=== PATIENT | female | born 1980 | race Caucasian/White ===

== ENCOUNTER 2016-12-29 20:22 | Observation (INO) | payer OTHER ==
--- NOTE | ~2016-12-29 | CR72 ---
[facility] A Service of [facility] RADIOLOGY TEXT RESULTS PATIENT: ALEX JERNIGAN LOCATION: [facility] 328 : 80 UNIT #: [id number] AGE: [address]: Lor Cordova MD SEX: F ORDER DR: [id number] [facility] [address], [place] [address] [id number] MR#: [id number] Acc #: [id number] NAME: ALEX JERNIGAN : 1980 SEX: F STUDY DATE/TIME: 12/29/2016 19:34 UNIT: [facility] ROOM: [facility] STUDY DESCRIPTION: CR Chest Single View Portable Attending Physician: Olivia Sloan M.D. Referring Physician: Lor Cordova M.D. Ordering Physician: Israel Boyce M.D. Primary Care Physician: Lor Cordova M.D. MEDICAL IMAGING REPORT This report is preliminary unless electronic signature is present EXAM Portable chest. DATE OF EXAM 12/29/2016 HISTORY Left side chest pain and arm pain and shortness of air for 2 days. Cough. FINDINGS The cardiac size and pulmonary vascularity are normal. Mild right thoracic curve. Mild hyperinflation of both lungs. There is a small left apical pneumothorax measuring close to 5%. Consider short-term followup x-ray. IMPRESSION 1. Small left apical pneumothorax measures less than 5%. 2. No focal infiltrates. 3. Mild right lower thoracic curve. Dictated by... Hiram Guerrero M.D. THIS IS AN ELECTRONICALLY VERIFIED REPORT Hiram Guerrero M.D. at 12/30/2016 10:39 PM JIMMY/nadeen TD: 12/29/2016 23:39 JOB #: [id number] MEDICAL IMAGING REPORT [facility] A Service of [facility] RADIOLOGY TEXT RESULTS PATIENT: ALEX JERNIGAN LOCATION: [facility] 328 : 80 UNIT #: [id number] AGE: [address]: Lor Cordova MD SEX: F ORDER DR: Page 1 of 1 COPY
--- NOTE | ~2016-12-29 | DS ---
Unit #: [id number] #: [id number] Patient: ALEX JERNIGAN [id number] [address] [address] [id number] I MR#: [id number] NAME: ALEX JERNIGAN ROOM: 328 Age: 36 Sex: F Admission Date: 12/29/2016 : 1980 Discharge Date: 12/30/2016 Attending Physician: Lor Cordova M.D. Referring Physician: Lor Cordova M.D. Primary Care Physician: Lor Cordova M.D. DISCHARGE SUMMARY FINAL DIAGNOSES 1. Spontaneous pneumothorax, resolved. 2. Influenza A. SECONDARY DIAGNOSES 1. Hypertension. 2. Chronic low back pain, status post surgery. 3. History of nephrolithiasis. CONSULTANTS None. HOSPITAL COURSE The patient is a pleasant 36-year-old female who is a smoker, basically presents with some chest pain. She was seen and evaluated in the emergency room and was diagnosed with left apical pneumothorax less than 5%. She was treated with high flow oxygen and repeat chest x-ray did indicate a resolution of the pneumothorax. Influenza A. Patient was positive for the flu. She was started on Tamiflu. She will be discharged with 4 days of Tamiflu 75 mg p.o. b.i.d. For her pain, she was given some Isabela. She was evaluated and is stable for discharge and will be discharged in stable condition for outpatient followup with me in the office in 3 to 5 days. DISCHARGE MEDICATIONS 1. Neurontin 800 mg p.o. t.i.d. 2. Claritin 10 mg p.o. daily. 3. Tamiflu 75 mg p.o. q.12 h. 4. Isabela 5/325 one tablet p.o. q.6 h. p.r.n. I have counseled patient on smoking cessation today. Time spent coordinating discharge is about 33 minutes. Dictated by... Unit #: [id number] #: [id number] Patient: ALEX JERNIGAN Brenda Bai/saima TD: 12/30/2016 22:44 JOB #: [id number] DISCHARGE SUMMARY Page 1 of 1 X Lor Cordova MD DISCHARGE SUMMARY
--- NOTE | ~2016-12-29 | CR63 ---
[facility] A Service of [facility] RADIOLOGY TEXT RESULTS PATIENT: ALEX JERNIGAN LOCATION: [facility] 328-01 : [birth year] UNIT #: [id number] AGE: [address]: Lor Cordova MD SEX: F ORDER DR: [id number] [facility] [address] [facility]. [place], [place] [address] [id number] I MR#: [id number] #: [id number] NAME: ALEX JERNIGAN : 1980 SEX: F STUDY DATE/TIME: 12/30/2016 7:29 UNIT: [address] ROOM: [facility] STUDY DESCRIPTION: CR Chest 2 View Attending Physician: Lor Cordova M.D. Referring Physician: Lor Cordova M.D. Ordering Physician: Olivia Sloan M.D. Primary Care Physician: Lor Cordova M.D. MEDICAL IMAGING REPORT This report is preliminary unless electronic signature is present EXAM 2 views chest 12/30/2016. HISTORY Pneumothorax. FINDINGS AP radiograph of the chest is presented. Comparison 12/29/2016. The bony structures are unremarkable. Heart and mediastinum normal in size and contour. The lungs are well inflated bilaterally without evidence of acute pulmonary disease or pleural effusion. Tiny left pneumothorax seen on prior examination not evident on today's study. Dictated by... Tramaine Alvarez M.D. THIS IS AN ELECTRONICALLY VERIFIED REPORT Tramaine Alvarez M.D. at 12/30/2016 4:49 PM Aruna TD: 12/30/2016 09:57 JOB #: [id number] MEDICAL IMAGING REPORT Page 1 of 1 COPY
--- NOTE | ~2016-12-29 | HP ---
Unit #: [id number] #: [id number] Patient: ALEX JERNIGAN [id number] [address] [address] [id number] I MR#: [id number] NAME: ALEX JERNIGAN ROOM: 618[address] Age: 36 Sex: F Admission Date: 12/29/2016 : 1980 Attending Physician: Olivia Sloan M.D. Referring Physician: Lor Cordova M.D. Primary Care Physician: Lor Cordova M.D. HISTORY AND PHYSICAL CHIEF COMPLAINT Small left apical pneumothorax. HISTORY OF PRESENT ILLNESS This pleasant 36-year-old female with seasonal allergies and chronic low back pain is admitted for left chest pain. The patient states that she was well until two days prior to admission when she became hoarse with a minor cough and sneezing. She then began to experience left upper chest pain worse with inspiration radiating to the left arm. She did have nausea, vomiting, and a headache. She presented to this emergency department this evening somewhat hypertensive. Chest x-ray shows a less than 5% pneumothorax of the left lung. She was placed on high-flow oxygen in the emergency department. PAST MEDICAL HISTORY 1. Chronic low back pain, status post back surgery. 2. Kidney stones. 3. Bilateral tubal ligation. 4. Appendectomy. 5. Breast augmentation surgery. ALLERGIES No known drug allergies. HOME MEDICATIONS 1. Ibuprofen. 2. Neurontin 800 mg t.i.d. FAMILY HISTORY Coronary artery disease, hypertension, diabetes mellitus. SOCIAL HISTORY The patient lives with her fiance. She smokes one-half pack per day of tobacco and seldom drinks alcohol. REVIEW OF SYSTEMS Notable for left chest pain, above-mentioned surgeries, kidney stones, seasonal allergies, hoarseness, mild cough, rhinorrhea, and chronic back pain. All other systems were reviewed and are otherwise negative. PHYSICAL EXAMINATION GENERAL: A pleasant, uncomfortable-appearing, 36-year-old, thin female. VITAL SIGNS: Temperature 98.3, pulse 57, respirations 16, initial blood Unit #: [id number] #: [id number] Patient: ALEX JERNIGAN pressure 155/101, current blood pressure is 125/91, and O2 saturation is 99% on a nonrebreather. HEENT: Eyes PERRLA. Extraocular muscles are intact. Pharynx is benign. NECK: Supple without adenopathy or thyromegaly. CHEST: A little bit diminished breath sounds on the left in the upper chest as compared to the right. CARDIAC: Normal S1 and S2, without murmur. ABDOMEN: Bowel sounds are present. No hepatosplenomegaly, tenderness, or masses. EXTREMITIES: Without clubbing, cyanosis, or edema. Pedal pulses are present. NEUROLOGIC: Patient is awake, alert, and oriented. Cranial nerves are intact. Equal strength throughout. DIAGNOSTIC STUDIES ADMISSION LABORATORY: Hematocrit is 42.2 with normal white count and platelet count is 460,000. SMA-12 is normal except for an alkaline phosphatase of 102. Cardiac markers are negative. Point of care beta hCG is negative. Flu serology is positive. IMAGING: Chest x-ray shows less than 5% pneumothorax on the left. CARDIOLOGY: EKG normal sinus rhythm, rate 72, normal appearing. ASSESSMENT 1. Left pneumothorax after sneezing. 2. Positive for influenza A. 3. Seasonal allergies. 4. Tobacco abuse. PLANS 1. High-flow oxygen. 2. Repeat chest x-ray in the morning. 3. Dr. Zimmerman was consulted in the ER as well. 4. IV fluids and supportive treatment. 5. SCDs for DVT prophylaxis. 6. Tamiflu. 7. Smoking cessation counseling. 1. Dictated by Brenda Aguillon/kanchan TD: 12/29/2016 22:13 JOB #: [id number] HISTORY AND PHYSICAL Page 1 of 1 X Olivia Sloan MD X HISTORY AND PHYSICAL
--- NOTE | ~2016-12-29 | EKG ---
PATIENT: ALEX JERNIGAN UNIT #: [id number] Ventricular Rate: 72 BPM Atrial Rate: 72 BPM P-R Interval: 136 ms QRS Duration: 82 ms Q-T Interval: 390 ms QTC Calculation(Bezet): 427 ms P Margaret: 53 degrees Calculated R Margaret: 60 degrees Calculated T Margaret: 52 degrees Diagnosis Line: Normal sinus rhythm Diagnosis Line: Normal ECG Diagnosis Line: When compared with ECG of 20-DEC-2015 22:15, Diagnosis Line: No significant change was found Diagnosis Line: Confirmed by CARMEN HARDY MD ([id number]) on 12/30/2016 Diagnosis Line: 7:16:46 PM INTERPRETING MD: ANTONY WIN
[2016-12-29 19:39] LABS: BASOPHIL# 0.1 X10e3 (0-0.3); EOSINOPHIL# 0.1 X10e3 (0-0.7); EOSINOPHIL% 0.8 % (0.0-7.0); HEMATOCRIT 42.2 % (35.0-45.0); HEMOGLOBIN 14.2 gm/dL (12.0-16.0); LYMPHOCYTE# 2.4 X10e3 (1.0-3.5); LYMPHOCYTE% 28.2 % (17.0-45.0); MEAN CELL VOLUME 96.6 FL (83-96); MEAN CORPUSCULAR HEMOGLOBIN 32.5 PG (28-34); MEAN CORPUSCULAR HGB CONC 33.6 g/dL (30-36); MEAN PLATELET VOLUME 8.2 FL (6.5-11.5); MONOCYTE# 0.4 X10e3 (0-1.0); MONOCYTE% 4.9 % (3.0-12.0); NEUTROPHIL# 5.6 X10e3 (1.5-7.1); NEUTROPHIL% 65.1 % (40-75); PLATELET COUNT 460 X10e3 (140-420); RED BLOOD COUNT 4.37 X10e (3.90-5.30); RED CELL DISTRIBUTION WIDTH 13.1 % (11.0-15.5); WHITE BLOOD COUNT 8.6 X10e3 (4.0-10.5)
[2016-12-29 19:41] LABS: DIFF IND NO
[2016-12-29 20:01] LABS: ALBUMIN SERUM 4.6 g/dL (3.5-5.0); BILIRUBIN, DIRECT 0.1 mg/dL (0.0-0.2); BILIRUBIN,INDIRECT 0.6 mg/dL (0.0-0.9); BILIRUBIN,TOTAL 0.7 mg/dL (0.2-2.0); BUN/CREATININE RATIO 8.75; CALCIUM SERUM 9.5 mg/dL (8.4-10.2); CREATININE SERUM 0.8 mg/dL (0.6-1.4); GLOM FILT RATE Estimated 94.9 mL/min (>60); POTASSIUM 3.7 mmol/L (3.5-5.1); PROTEIN TOTAL SERUM 7.4 g/dL (6.0-8.3)
[2016-12-29 20:11] LABS: POC - CKMB <1.0 ng/mL (0.0-7.9); POC - TROPONIN <0.05 ng/mL (<=0.05)
[~2016-12-29 20:22] MED LIST: AMITRYPTYLINE PO; CELEBREX PO; CIPRO PO; CLARITIN10 MG; DIAZEPAM PO; DULOXETINE HCL60 MG; EXCEDRIN MIGRAI1 TA1; FIORICET1 TAB; FLEXERIL; FLEXERIL PO; FLONASE 0.05% N16 G1; IBUPROFEN PO; KLONOPIN0.5 M1; LORTAB 10/500 T1 TAB PO; MEDROL PO; MOBIC PO; MOTION RELIEF25 MG PO; MULTI-VITAMIN1 TAB; NEURONTIN300 MG; PERCOCET10 PO; PERCOCET5/325 PO; PROPRANOLOL HCL40 MG; SEROQUEL XR50 MG; ULTRAM PO; ZYRTEC10 M1
[2016-12-29] MEDS ORDERED: NEURONTIN800 MG PO (20:36)
[2016-12-29 20:45] LABS: POC - CKMB <1.0 ng/mL (0.0-7.9); POC - TROPONIN <0.05 ng/mL (<=0.05)
[2016-12-29 21:20] LABS: INFLUENZA A POS (NEG); INFLUENZA B NEG (NEG)
[2016-12-29 21:20] LABS: POC - CKMB <1.0 ng/mL (0.0-7.9); POC - TROPONIN <0.05 ng/mL (<=0.05)
[2016-12-30 06:13] LABS: BASOPHIL# 0.1 X10e3 (0-0.3); BASOPHIL% 1.2 % (0-2.5); EOSINOPHIL# 0.1 X10e3 (0-0.7); EOSINOPHIL% 1.5 % (0.0-7.0); HEMATOCRIT 35.6 % (35.0-45.0); LYMPHOCYTE# 3.6 X10e3 (1.0-3.5); LYMPHOCYTE% 39.8 % (17.0-45.0); MEAN CELL VOLUME 96.7 FL (83-96); MEAN CORPUSCULAR HEMOGLOBIN 32.9 PG (28-34); MEAN PLATELET VOLUME 8.3 FL (6.5-11.5); MONOCYTE# 0.6 X10e3 (0-1.0); MONOCYTE% 6.9 % (3.0-12.0); NEUTROPHIL# 4.5 X10e3 (1.5-7.1); NEUTROPHIL% 50.6 % (40-75); PLATELET COUNT 358 X10e3 (140-420); RED BLOOD COUNT 3.68 X10e (3.90-5.30); RED CELL DISTRIBUTION WIDTH 12.6 % (11.0-15.5); WHITE BLOOD COUNT 8.9 X10e3 (4.0-10.5)
[2016-12-30 06:21] LABS: HEMOGLOBIN 12.1 gm/dL (12.0-16.0)
[2016-12-30 06:22] LABS: DIFF IND NO
[2016-12-30 06:49] LABS: CALCIUM SERUM 9.2 mg/dL (8.4-10.2); CREATININE SERUM 0.8 mg/dL (0.6-1.4); GLOM FILT RATE Estimated 94.9 mL/min (>60); POTASSIUM 3.7 mmol/L (3.5-5.1)
[2016-12-30] MEDS ORDERED: HYDROCODON-ACE1 EAC7 PO (17:15)
[2016-12-30] MEDS ORDERED: TAMIFLU75 M1 PO (17:15)
== END 2016-12-30 18:00 | disposition home or self-care (01) ==
LOC: CED 20:22 → CEDOF 20:59 → C3A PCU 22:25
PROVIDERS: Emergency Medicine; Internal Medicine
DX: J93.83 Other pneumothorax (principal); J10.1 Influenza due to other identified influenza virus with other respiratory manifestations; I10 Essential (primary) hypertension; M54.5 Low back pain; G89.29 Other chronic pain; F17.200 Nicotine dependence, unspecified, uncomplicated; J30.2 Other seasonal allergic rhinitis; Z87.442 Personal history of urinary calculi; Z83.3 Family history of diabetes mellitus; Z82.49 Family history of ischemic heart disease and other diseases of the circulatory system
CPT/HCPCS: 36415; 71010; 71020; 80048; 80076; 82553; 84484; 84703; 85025; 87804; 93005; 94760; 96374; 96376; 99285; 99406; G0378; J2405